=== PATIENT | female | born 1940 | race Caucasian/White ===

== ENCOUNTER 2018-09-29 00:23 | Emergency (ER) | payer MEDICARE, OTHER ==
[~2018-09-29] VITALS: Ht 157.5 cm; Wt 59.9 kg
--- NOTE | 2018-09-29 00:40 | NUR ---
TO BED 5 BIB PARAMEDICS C/O INTERMITTENT NONRADIATING CHEST PAIN SINCE 2299. PT AAOX4 NO ACUTE DISTRESS NOTED, RESP EVEN AND UNLABORED. PLACE PT ON CARDIAC MONITORING, CONTINUOUS POX, O2@2L/NC. ER MD AT BEDSIDE TO EVAL PT WITH ORDERS RECEIVED. WILL CARRY OUT ORDERS.
[2018-09-29 00:42] LABS: BASOPHILS # (AUTO) 0.1 /CMM (0.0-0.2); BASOPHILS % (AUTO) 2.4 % (0.0-2.0); EOSINOPHILS % (AUTO) 5.6 % (0.0-6.0); HEMATOCRIT 39 % (33-45); HEMOGLOBIN 13.4 g/dL (11.5-14.8); LYMPHOCYTES # (AUTO) 2.1 /CMM (0.8-4.8); MEAN CORPUSCULAR HGB CONC 34 g/dl (31.0-36.0); MEAN CORPUSCULAR VOLUME 89 fL (82-100); MONOCYTES # (AUTO) 0.5 /CMM (0.1-1.30); MONOCYTES % (AUTO) 8.6 % (2.0-12.0); NEUTROPHILS # (AUTO) 3.1 /CMM (1.8-8.9); NEUTROPHILS % (AUTO) 49.4 % (43.0-81.0); PLATELET COUNT (AUTO) 144 /CMM (150-450); WHITE BLOOD COUNT (AUTO) 6.2 K/uL (4.3-11.0)
[2018-09-29] MEDS ORDERED: MORPHINE SULFATE INJ 2 MG/ML DISP.SYRIN IV ONE (01:00)
--- NOTE | 2018-09-29 01:00 | NUR ---
now pt reports that her pain has been going on for a while and that shayy uses nitro patch but feels like it has stopped working but forgot to tell her doctor about it.
[2018-09-29] MEDS ORDERED: MORPHINE SULFATE INJ 2 MG/ML DISP.SYRIN ONE (01:01)
--- NOTE | 2018-09-29 01:06 | NUR ---
PT PAIN FREE AT THIS TIME. PT REFUSE PAIN MEDS AT THIS TIME. ER MADE AWARE.
[2018-09-29 01:19] LABS: ALANINE AMINOTRANSFERASE 17 U/L (12-78); ALBUMIN 3.3 g/dL (3.4-5.0); ALKALINE PHOSPHATASE 76 U/L (46-116); ASPARTATE AMINOTRANSFERASE 23 U/L (15-37); B-TYPE NATRIURETIC PEPTIDE 141 PG/ML (0-125); BILIRUBIN,DIRECT 0.1 mg/dL (0.0-0.2); BILIRUBIN,TOTAL 0.2 mg/dL (0.2-1.0); CARBON DIOXIDE 27 mmol/L (21-32); CHLORIDE 105 mmol/L (98-107); CREATININE 0.6 mg/dL (0.6-1.3); GLUCOSE 104 mg/dL (74-106); SODIUM SERUM 140 mmol/L (136-145); TOTAL PROTEIN, SERUM 6.6 g/dL (6.4-8.2); UREA NITROGEN, BLOOD 21 mg/dL (7-18)
--- NOTE | 2018-09-29 01:55 | NUR ---
IV removed. Catheter intact and site benign. Pressure and 4x4 applied to site. No bleeding noted. Patient discharged to home in stable condition. Written and verbal after care instructions given. Patient verbalizes understanding of instruction. ambulatory with a steady gait noted. pt aaox4 no acute distress noted, resp even and unlabored.
[2018-09-29 01:57] VITALS: BP 153/62
== END 2018-09-29 01:58 | disposition home or self-care (01) ==
LOC: ER 00:27
DX: I20.9 Angina pectoris, unspecified (principal); J45.909 Unspecified asthma, uncomplicated; Z98.890 Other specified postprocedural states; Z88.6 Allergy status to analgesic agent
CPT/HCPCS: 36415; 71045-TC; 80048-TC; 80076-TC; 83880; 84484-TC; 85025-TC; J2270

== ENCOUNTER 2019-06-07 01:01 | Inpatient (IN) | payer MEDICARE, OTHER ==
[~2019-06-07] VITALS: Ht 160 cm; Wt 56.7 kg
[~2019-06-07 01:01] MED LIST: FLUO20TA28 PO; FLUT1BLS IH; LORA10TA7 PO; MONT10TA22 PO; PRIM50TA PO
--- NOTE | 2019-06-07 01:15 | NUR ---
bib family for c/o abd pain x 3 hrs. -N/V. - diarrhea
[2019-06-07 01:39] LABS: BASOPHILS % (AUTO) 0.3 % (0.0-2.0); EOSINOPHILS % (AUTO) 4.5 % (0.0-6.0); HEMATOCRIT 41 % (33-45); HEMOGLOBIN 13.8 g/dL (11.5-14.8); LYMPHOCYTES # (AUTO) 1.7 /CMM (0.8-4.8); LYMPHOCYTES % (AUTO) 23.2 % (20.0-44.0); MEAN CORPUSCULAR HGB CONC 34 g/dl (31.0-36.0); MEAN CORPUSCULAR VOLUME 90 fL (82-100); MONOCYTES # (AUTO) 0.6 /CMM (0.1-1.30); MONOCYTES % (AUTO) 7.9 % (2.0-12.0); NEUTROPHILS # (AUTO) 4.7 /CMM (1.8-8.9); NEUTROPHILS % (AUTO) 64.1 % (43.0-81.0); PLATELET COUNT (AUTO) 134 /CMM (150-450); RED BLOOD CELL COUNT(AUTO) 4.55 MIL/uL (4.0-5.2); WHITE BLOOD COUNT (AUTO) 7.4 K/uL (4.3-11.0)
[2019-06-07 01:41] LABS: CALCIUM, SERUM 8.2 mg/dL (8.5-10.1); CARBON DIOXIDE 32 mmol/L (21-32); CHLORIDE 108 mmol/L (98-107); CREATININE 0.6 mg/dL (0.6-1.3); GLUCOSE 126 mg/dL (74-106); POTASSIUM 3.9 mmol/L (3.5-5.1); SODIUM SERUM 144 mmol/L (136-145); UREA NITROGEN, BLOOD 25 mg/dL (7-18)
[2019-06-07 01:48] LABS: ALANINE AMINOTRANSFERASE 64 U/L (12-78); ALBUMIN 3.2 g/dL (3.4-5.0); ALKALINE PHOSPHATASE 79 U/L (46-116); ASPARTATE AMINOTRANSFERASE 99 U/L (15-37); BILIRUBIN,DIRECT 0.2 mg/dL (0.0-0.2); BILIRUBIN,TOTAL 0.4 mg/dL (0.2-1.0); TOTAL PROTEIN, SERUM 6.2 g/dL (6.4-8.2)
[2019-06-07] MEDS ORDERED: CT SWABBABLE VALVE TRANS SET 1 EA INFUS.SET MC ONE (01:58)
[2019-06-07] MEDS ORDERED: IV NS 0.9% 250 ML IV ONE (01:58)
[2019-06-07] MEDS ORDERED: IOHEXOL-300 100 ML VIAL IV ONE (01:58)
--- NOTE | 2019-06-07 02:00 | NUR ---
pt was picked up for CT
[2019-06-07 02:01] LABS: LIPASE 2394 U/L (73-393)
--- NOTE | 2019-06-07 02:03 | NUR ---
obtained a verbal order from Dr. Greco for Morphine 2mg IV once for pain
[2019-06-07] MEDS ORDERED: MORPHINE SULFATE INJ 2 MG/ML DISP.SYRIN ONE (02:17)
[2019-06-07] MEDS ORDERED: MORPHINE SULFATE INJ 2 MG/ML DISP.SYRIN IV ONE (02:30)
[2019-06-07] MEDS ORDERED: IV NS 0.9% 1,000 ML IV STA (02:34)
[2019-06-07] MEDS ORDERED: IV NS 0.9% 1,000 ML IV PRN (03:00)
[2019-06-07] MEDS ORDERED: IV 1/2NS 1000 ML 1,000 ML IV PRN (03:10)
[2019-06-07] MEDS ORDERED: ONDANSETRON HCL/PF 4 MG/2 ML VIAL IVP PRN (03:30)
[2019-06-07] MEDS ORDERED: MORPHINE SULFATE INJ 2 MG/ML DISP.SYRIN IV PRN (03:30)
[2019-06-07] MEDS ORDERED: ZOLPIDEM TARTRATE 5 MG TABLET PO PRN (03:30)
[2019-06-07] MEDS ORDERED: Z GUARD REMEDY 2 OZ OINT TP PRN (03:30)
[2019-06-07] MEDS ORDERED: MAG HYDROX/AL HYDROX/SIMETH 30 ML UDC PO PRN (03:30)
[2019-06-07] MEDS ORDERED: MAGNESIUM HYDROXIDE 30 ML UDC PO PRN (03:30)
[2019-06-07] MEDS ORDERED: HYDROCODONE/APAP 5/325MG 1 EACH TABLET PO PRN (03:30)
--- NOTE | 2019-06-07 03:38 | NUR ---
pt was assisted to the bathroom. reported no pain at this time
--- NOTE | 2019-06-07 03:40 | NUR ---
pt does nor remember the list of her home meds. will provide the list in am
--- NOTE | 2019-06-07 03:53 | NUR ---
BED ASSIGNMENT 202
--- NOTE | 2019-06-07 04:12 | NUR ---
report given to Dolly on 2nd floor
--- NOTE | 2019-06-07 04:26 | NUR ---
pt was transferred to 202 in stable condition.
[2019-06-07 04:30] VITALS: BP 117/74
--- NOTE | 2019-06-07 04:30 | NUR ---
RN MS NOTES RECEIVED PATIENT FROM ER VIA WHEELCHAIR SAFELY TRANSFERRED TO BED, ADMITTING DX ACUTE PANCREATITIS, AWAKE ALERT AND ORIENTED X 4, RESPIRATIONS EVEN AND UNLABORED WITH EQUAL RISE AND FALL OF CHEST,DENIES ANY PAIN OR DISCOMFORT AT THIS TIME, IV SITE TO RIGHT AC #20G INTACT AND PATENT, IVF 1.2 NS AT 150 ML/HR RUNNING, BODY ASSESSMENT DONE, NO WOUNDS NOTED PATIENT ALSO DENIES WOUNDS, BELONGINGS LIST DONE, SAFETY PRECAUTIONS IN PLACE, ORIENTED TO STAFF AND CALL LIGHT AND KEPT WITHIN REACH, LOW BED AND LOCKED, PATIENT IS NPO STATUS, ALL NEEDS ATTENDED WILL CONTINUE TO MONITOR AND ATTEND TO NEEDS, OFFERED PAIN MEDICATION DENIED AT THIS TIME.
[2019-06-07 06:24] LABS: BASOPHILS % (AUTO) 0.2 % (0.0-2.0); EOSINOPHILS % (AUTO) 2.3 % (0.0-6.0); HEMATOCRIT 36 % (33-45); HEMOGLOBIN 12.6 g/dL (11.5-14.8); LYMPHOCYTES # (AUTO) 1.2 /CMM (0.8-4.8); MEAN CORPUSCULAR HGB CONC 35 g/dl (31.0-36.0); MEAN CORPUSCULAR VOLUME 89 fL (82-100); MONOCYTES # (AUTO) 0.3 /CMM (0.1-1.30); MONOCYTES % (AUTO) 6.6 % (2.0-12.0); NEUTROPHILS % (AUTO) 64.9 % (43.0-81.0); PLATELET COUNT (AUTO) 115 /CMM (150-450); WHITE BLOOD COUNT (AUTO) 4.6 K/uL (4.3-11.0)
--- NOTE | 2019-06-07 06:30 | NUR ---
RN MS CLOSING NOTES PATIENT IN BED,AWAKE ALERT AND ORIENTED X 4, RESPIRATIONS EVEN AND UNLABORED WITH EQUAL RISE AND FALL OF CHEST,DENIES ANY PAIN OR DISCOMFORT AT THIS TIME, IV SITE TO RIGHT AC #20G INTACT AND PATENT, IVF 1.2 NS AT 150 ML/HR RUNNING, SAFETY PRECAUTIONS IN PLACE,CALL LIGHT KEPT WITHIN REACH, LOW BED AND LOCKED, PATIENT IS NPO STATUS, ALL NEEDS ATTENDED WILL CONTINUE TO MONITOR AND ATTEND TO NEEDS, TOILETING OFFERED, REMAINS COMFORTABLE , NO CHANGE NOTED SINCE ADMISSION, PER PATIENT WILL ASK TO BRING HOME MEDICATION LIST.
[2019-06-07 07:10] LABS: ALANINE AMINOTRANSFERASE 240 U/L (12-78); ALBUMIN 2.8 g/dL (3.4-5.0); ALKALINE PHOSPHATASE 71 U/L (46-116); ASPARTATE AMINOTRANSFERASE 493 U/L (15-37); BILIRUBIN,TOTAL 0.4 mg/dL (0.2-1.0); CALCIUM, SERUM 7.5 mg/dL (8.5-10.1); CARBON DIOXIDE 26 mmol/L (21-32); CHLORIDE 106 mmol/L (98-107); CREATININE 0.5 mg/dL (0.6-1.3); GLUCOSE 155 mg/dL (74-106); LIPASE 1183 U/L (73-393); POTASSIUM 3.7 mmol/L (3.5-5.1); SODIUM SERUM 140 mmol/L (136-145); TOTAL PROTEIN, SERUM 5.4 g/dL (6.4-8.2); UREA NITROGEN, BLOOD 18 mg/dL (7-18)
--- NOTE | 2019-06-07 07:30 | NUR ---
RN MS NOTES PT IN BED, AWAKE, ALERT AND ORIENTED, NO COMPLAINT OF ABDOMINAL PAIN, NO NAUSEA POR VOMITING, NOT IN DISTRESS, IV FLUIDS INFUSING WELL, PLAN OF CARE DISCUSSED WITH PT, VERBALIZED UNDERSTANDING, ABLE TO AMBULATE TO THE BATHROOM WITH STEADY GAIT, CALL LIGHT WITHIN REACH, NEEDS ATTENDED.
[2019-06-07 08:00] VITALS: BP 133/73
[2019-06-07] MEDS ORDERED: MONT10TA22 PO (08:59)
[2019-06-07] MEDS ORDERED: DONE10TA44 PO (08:59)
[2019-06-07] MEDS ORDERED: MEMA28CA5 PO (08:59)
[2019-06-07] MEDS ORDERED: ESCI10TA PO (08:59)
[2019-06-07] MEDS ORDERED: ALBU18HF2 PO (08:59)
[2019-06-07] MEDS ORDERED: PRIM250T8 PO (08:59)
[2019-06-07] MEDS ORDERED: CARB1TAB21 PO (08:59)
--- NOTE | 2019-06-07 09:08 | NUR ---
RN MS NOTES PT SEEN AND EXAMINED BY DR ESTRELLA, PLAN OF CARE DISCUSSED WITH PT, VERBALIZED UNDERSTANDING, PER MD OK TO START ON CLEAR LIQUIDS FOR LUNCH.
[2019-06-07] MEDS ORDERED: ALBUTEROL FS 2.5 MG/0.5 ML VIAL.NEB NEB PRN (11:30)
--- NOTE | 2019-06-07 13:00 | NUR ---
RN MS NOTES PT IN BED, TOLERATING CURRENT DIET OF THIS TIME, NO COMPLAINT OF PAIN, NOT IN DISTRESS, NEEDS ATTENDED.
[2019-06-07] MEDS: PRIMIDONE 250 MG TABLET PO SCH ×2 (14:38→17:06)
[2019-06-07] MEDS: ACETAMINOPHEN 325 MG TABLET PO PRN (14:38)
[2019-06-07 16:00] VITALS: BP 150/80
[2019-06-07] MEDS: CARBIDOPA/LEVODOPA 25/100 MG 1 UDTAB PO SCH (17:06)
[2019-06-07] MEDS: MEMANTINE HCL 5 MG TABLET PO SCH (17:06)
--- NOTE | 2019-06-07 19:00 | NUR ---
RN MS NOTES PT IN BED, RESTING, NO COMPLAINT OF PAIN, NOT IN DISTRESS, RECEIVED BREATHING TREATMENT, VERBALIZED RELIEF, STATED THAT SHE IS TAKING NITROPATCH AND BREO INHALER AT HOME, DR. ESTRELLA INFORMED, MEDS ORDERED, ABLE TO AMBULATE ALONG THE HALLWAY WITH STEADY GAIT, ALL NEEDS ATTENDED.
--- NOTE | 2019-06-07 19:40 | NUR ---
RN OPENING NOTES RECEIVED REPORT FROM DAYSHIFT RN GILMA. FOUND Pt AWAKE, SITTING UP IN BED, VISITING AT BEDSIDE. Pt IS A/OX4, VERBAL, ABLE TO MAKE NEEDS KNOWN. NO S/S OF ACUTE DISTRESS OR SOB NOTED. NO C/O PAIN OR SEVERE DISCOMFORT AT THIS TIME. IV ACCESS ON RAC #20G. SAFETY MEASURES IN PLACE. BED LOW, LOCKED, HOB ELEVATED, SIDE RAILS UP, CALL LIGHT AND BED SIDE TABLE WITHIN REACH. WILL CONTINUE TO MONITOR Pt's CONDITION AND SAFETY THROUGHOUT THEE NIGHT.
[2019-06-07 20:30] VITALS: BP 121/55
[2019-06-07] MEDS ORDERED: MONTELUKAST SODIUM (10MG) 10 MG TABLET PO SCH (22:00)
[2019-06-07] MEDS ORDERED: DONEPEZIL 5 MG TABLET PO SCH (22:00)
--- NOTE | 2019-06-07 23:07 | NUR ---
Met with patient and spouse at bedside. Patient is alert and pleasant,states she lives locally with her spouse and daughter on the second floor apartment with elevator access. States her baseline is able to ambulate without assistive device and independent with adl's. She does not own any DME and no homehealth reported. She plan to return home once discharge. Addendum: 06/07/19 at 2307 by TAHIR PANG RN Amended: Links added.
--- NOTE | 2019-06-08 06:40 | NUR ---
RN CLOSING NOTES NO SIGNIFICANT CHANGES IN Pt's CONDITION. Pt REMAINED STABLE PER BASELINE. NO S/S OF ACUTE DISTRESS OR SOB NOTED DURING THE NIGHT. ALL NEEDS MET AND ATTENDED TO. ALL ORDERED MEDS GIVEN. Pt IS AWAKE, RESTING IN BED, WATCHING TV. SAFETY MEASURES IN PLACE. WILL ENDORSE TO DAYSHIFT RN FOR Pt's EUGENIO.
--- NOTE | 2019-06-08 07:15 | NUR ---
RN OPENING NOTES RECEIVED PATIENT IN BED RESTING. NOT IN NAY FORM OF DISTRESS. NO SOB. DENIED PAIN OR DISCOMFORT AT THIS TIME. IV ACCESS INTACT AND PATENT. NEEDS ATTENDED. KEPT PATIENT SAFE AND COMFORTABLE. BED IN LOW LOCKED POSITION. SIDERAILS UPX2, CALL LIGHT IN REACH. WILL CONT TO MONITOR ACCORDINGLY.
[2019-06-08 07:18] LABS: BASOPHILS % (AUTO) 0.4 % (0.0-2.0); EOSINOPHILS % (AUTO) 5.1 % (0.0-6.0); HEMATOCRIT 42 % (33-45); HEMOGLOBIN 14.3 g/dL (11.5-14.8); LYMPHOCYTES # (AUTO) 1.2 /CMM (0.8-4.8); LYMPHOCYTES % (AUTO) 27.2 % (20.0-44.0); MEAN CORPUSCULAR HGB CONC 34 g/dl (31.0-36.0); MEAN CORPUSCULAR VOLUME 89 fL (82-100); MONOCYTES # (AUTO) 0.4 /CMM (0.1-1.30); MONOCYTES % (AUTO) 8.8 % (2.0-12.0); NEUTROPHILS # (AUTO) 2.7 /CMM (1.8-8.9); NEUTROPHILS % (AUTO) 58.5 % (43.0-81.0); PLATELET COUNT (AUTO) 140 /CMM (150-450); WHITE BLOOD COUNT (AUTO) 4.6 K/uL (4.3-11.0)
[2019-06-08 08:08] LABS: ALBUMIN 3.3 g/dL (3.4-5.0); BILIRUBIN,TOTAL 0.6 mg/dL (0.2-1.0); CALCIUM, SERUM 8.1 mg/dL (8.5-10.1); CREATININE 0.6 mg/dL (0.6-1.3); MAGNESIUM 1.6 mg/dL (1.8-2.4); PHOSPHORUS 3.1 mg/dL (2.5-4.9); POTASSIUM 3.8 mmol/L (3.5-5.1); TOTAL PROTEIN, SERUM 6.5 g/dL (6.4-8.2)
[2019-06-08 08:20] VITALS: BP 135/79
[2019-06-08] MEDS: CARBIDOPA/LEVODOPA 25/100 MG 1 UDTAB PO SCH (08:39)
[2019-06-08] MEDS: MEMANTINE HCL 5 MG TABLET PO SCH (08:40)
[2019-06-08] MEDS: PRIMIDONE 250 MG TABLET PO SCH ×2 (08:40→14:21)
[2019-06-08] MEDS ORDERED: FLUTICASONE/VILANTEROL 1 EACH BLST.W.DEV IH SCH (09:00)
[2019-06-08] MEDS ORDERED: NITROGLYCERIN 0.4 MG/HR PATCH.TD24 TD PRN (09:00)
[2019-06-08] MEDS ORDERED: ESCITALOPRAM OXALATE (10 MG) 10 MG TABLET PO SCH (09:00)
[2019-06-08] MEDS ORDERED: Magnesium 1GM/D5W 100ML PREMIX 100 ML IV SCH (10:38)
[2019-06-08] MEDS: ACETAMINOPHEN 325 MG TABLET PO PRN (10:54)
[2019-06-08] MEDS ORDERED: MAGNESIUM OXIDE 400 MG TABLET PO ONE (12:30)
--- NOTE | 2019-06-08 13:00 | NUR ---
rn notes patient tolerated lunch well. no NV.
--- NOTE | 2019-06-08 16:10 | NUR ---
Discharged patient in stable condition picked up by [facility] Discharge instructions given to patient and , to follow up with pcp and GI doctor outpatient, and to continue home meds. Patient verbalized understanding. DC paperwork handed to patient and all belongings returned, all forms signed. IV access removed, no bleeding. Removed name band.
[2019-06-15] MEDS ORDERED: ONDA4TAB5 PO (11:45)
[2019-06-15] MEDS ORDERED: HYDR-4354 PO (11:45)
[2019-06-28] MEDS ORDERED: METH4TAB3 PO (08:56)
== END 2019-06-08 16:00 | disposition home or self-care (01) | DRG 439 ==
LOC: ER 01:03 → MEDSG2 03:56
PROVIDERS: ADMIT Nurse Practitioner Acute Care; ATTEND Nurse Practitioner Acute Care
DX: K85.90 Acute pancreatitis without necrosis or infection, unspecified (principal); E44.0 Moderate protein-calorie malnutrition; D68.59 Other primary thrombophilia; Z68.22 Body mass index [BMI] 22.0-22.9, adult; K44.9 Diaphragmatic hernia without obstruction or gangrene; K57.30 Diverticulosis of large intestine without perforation or abscess without bleeding; R74.0 Nonspecific elevation of levels of transaminase and lactic acid dehydrogenase [LDH]; I25.10 Atherosclerotic heart disease of native coronary artery without angina pectoris; Z98.61 Coronary angioplasty status; G20 Parkinson's disease; F32.9 Major depressive disorder, single episode, unspecified; G25.0 Essential tremor; F03.90 Unspecified dementia, unspecified severity, without behavioral disturbance, psychotic disturbance, mood disturbance, and anxiety; J45.909 Unspecified asthma, uncomplicated
CPT/HCPCS: 36415; 71045-TC; 76705-TC; 80048-TC; 80053-TC; 80076-TC; 83690-TC; 83735-TC; 84100-TC; 84478-TC; 84484-TC; 85025-TC; 87081-TC; G0378; J2270; J3475; J7030; J7050; Q9967

== ENCOUNTER 2019-06-13 10:10 | Outpatient (CLI) | payer MEDICARE, OTHER ==
[2019-06-13 10:10] VITALS: BP 109/70
[~2019-06-13 10:10] MED LIST changes: +ALBU18HF2 PO; +CARB1TAB21 PO; +DONE10TA44 PO; +ESCI10TA PO; +MEMA28CA5 PO; +PRIM250T8 PO
[2019-06-15] MEDS ORDERED: ONDA4TAB5 PO (11:45)
[2019-06-15] MEDS ORDERED: HYDR-4354 PO (11:45)
[2019-06-28] MEDS ORDERED: METH4TAB3 PO (08:56)
== END 2019-06-13 23:59 | disposition home or self-care (01) ==
LOC: MSC 10:10
PROVIDERS: ATTEND Internal Medicine
DX: R10.9 Unspecified abdominal pain (principal); G20 Parkinson's disease; I25.10 Atherosclerotic heart disease of native coronary artery without angina pectoris; Z98.61 Coronary angioplasty status; I10 Essential (primary) hypertension; F41.8 Other specified anxiety disorders

== ENCOUNTER 2019-06-13 10:44 | Inpatient (IN) | payer MEDICARE, OTHER ==
[~2019-06-13] VITALS: Ht 160 cm; Wt 54.0 kg
[~2019-06-13 10:44] MED LIST changes: -FLUO20TA28 PO; -FLUT1BLS IH; -LORA10TA7 PO; -PRIM50TA PO
--- NOTE | 2019-06-13 11:18 | NUR ---
TOOK OVER PT CARE. PT C/O ABDOMINAL PAIN SINCE LAST NIGHT. CHOLECYSTECTOMY DONE LAST WEEK. PLACED ON MONITOR AND PULSE OX.
[2019-06-13] MEDS ORDERED: ONDANSETRON HCL/PF 4 MG/2 ML VIAL ONE (11:28)
[2019-06-13] MEDS ORDERED: MORPHINE SULFATE INJ 4 MG/ML DISP.SYRIN ONE (11:28)
[2019-06-13] MEDS ORDERED: IV NS 0.9% 500 ML BAG IV ONE (11:30)
[2019-06-13] MEDS ORDERED: ONDANSETRON HCL/PF 4 MG/2 ML VIAL IVP ONE (11:30)
[2019-06-13] MEDS ORDERED: MORPHINE SULFATE INJ 2 MG/ML DISP.SYRIN IV ONE (11:30)
[2019-06-13 11:31] LABS: BASOPHILS % (AUTO) 0.7 % (0.0-2.0); EOSINOPHILS % (AUTO) 8.2 % (0.0-6.0); HEMATOCRIT 43 % (33-45); HEMOGLOBIN 14.5 g/dL (11.5-14.8); LYMPHOCYTES # (AUTO) 1.7 /CMM (0.8-4.8); LYMPHOCYTES % (AUTO) 36.9 % (20.0-44.0); MEAN CORPUSCULAR HGB CONC 34 g/dl (31.0-36.0); MEAN CORPUSCULAR VOLUME 91 fL (82-100); MONOCYTES # (AUTO) 0.4 /CMM (0.1-1.30); MONOCYTES % (AUTO) 9.7 % (2.0-12.0); NEUTROPHILS # (AUTO) 2.1 /CMM (1.8-8.9); NEUTROPHILS % (AUTO) 44.5 % (43.0-81.0); PLATELET COUNT (AUTO) 147 /CMM (150-450); RED BLOOD CELL COUNT(AUTO) 4.72 MIL/uL (4.0-5.2); WHITE BLOOD COUNT (AUTO) 4.6 K/uL (4.3-11.0)
[2019-06-13 11:32] LABS: CREATININE 0.6 mg/dL (0.6-1.3); POTASSIUM 4.5 mmol/L (3.5-5.1)
[2019-06-13 11:39] LABS: ALBUMIN 3.5 g/dL (3.4-5.0); BILIRUBIN,DIRECT 0.3 mg/dL (0.0-0.2); BILIRUBIN,TOTAL 0.7 mg/dL (0.2-1.0); TOTAL PROTEIN, SERUM 6.8 g/dL (6.4-8.2)
--- NOTE | 2019-06-13 11:55 | NUR ---
URINE SENT TO LAB
[2019-06-13 12:03] LABS: APPEARANCE,URINE Slightly Cloudy (CLEAR); BILIRUBIN,URINE Negative (NEGATIVE); BLOOD, URINE Trace-intact Ery/uL (NEGATIVE); COLOR,URINE Yellow (YELLOW); KETONES,URINE Negative (NEGATIVE); LEUKOCYTE ESTERASE ,URINE Negative (NEGATIVE); NITRITE, URINE Negative (NEGATIVE); PH,URINE 6.5 (5.0-8.0); PROTEIN,URINE Negative (NEGATIVE); UGLUCOSE Negative (NEGATIVE)
[2019-06-13 12:26] LABS: BACTERIA,URINE Few /HPF (None Seen); SQUAMOUS EPITHELIAL CELL,UR Few /HPF (None Seen); WBC,URINE 0-2 /HPF (0-3)
--- NOTE | 2019-06-13 13:01 | NUR ---
Patient is resting comfortably in bed. Easily aroused. VSS. Family at bedside
--- NOTE | 2019-06-13 13:06 | NUR ---
CALLED NURSING SUP FOR M/S BED.
--- NOTE | 2019-06-13 13:21 | NUR ---
NURSING SUP GAVE M/S BED 313-2.
--- NOTE | 2019-06-13 13:25 | NUR ---
TRIED CALLING FOR REPORT WAS TOLD NURSE IS ON BREAK. WILL CALL AGAIN IN TEN MINS
--- NOTE | 2019-06-13 13:43 | NUR ---
REPORT GIVEN TO MURIEL NASSAR FOR EUGENIO
--- NOTE | 2019-06-13 13:55 | NUR ---
PT TRANSFERED TO BED 313-2
[2019-06-13] MEDS ORDERED: ACETAMINOPHEN 325 MG TABLET PO PRN (14:00)
[2019-06-13] MEDS ORDERED: ONDANSETRON HCL/PF 4 MG/2 ML VIAL IVP PRN (14:00)
[2019-06-13] MEDS ORDERED: MORPHINE SULFATE INJ 4 MG/ML DISP.SYRIN IV PRN (14:00)
[2019-06-13] MEDS ORDERED: ALBUTEROL FS 2.5 MG/0.5 ML VIAL.NEB NEB PRN (14:30)
--- NOTE | 2019-06-13 15:00 | NUR ---
ms rn admitted a 78 year old female, came in from er w/cc of abdominal pain secondary to pancreatitis, awake,alert,oriented x4,not in any form of distress, accompanied by .will monitor patient.
[2019-06-13] MEDS: PANTOPRAZOLE 40 MG VIAL IV SCH (15:20)
[2019-06-13] MEDS: IV NS 0.9% 1,000 ML IV PRN (15:20)
--- NOTE | 2019-06-13 16:24 | NUR ---
ms psychiatric rn done, due meds given,went down for mrcp.
--- NOTE | 2019-06-13 17:56 | NUR ---
ms rn on bed, all needs attended.
[2019-06-13 20:00] VITALS: BP 117/64
--- NOTE | 2019-06-13 20:00 | NUR ---
MS/RN OPENING NOTES RECEIVED PATIENT AWAKE, ALERT X3,A BLE TO VERBALIZE NEEDS. REPORTED AND REQUESTED FOR ROOM CHANGE, AWAITING FOR ROOM , SITTING AND WAITING PATIENTLY ON IV FLUIDS, AT 100ML/HR, ON NPO STATUS DUE TO PANCREATITIS. WILL MONITOR. FAMILY INVOLVE.
[2019-06-13 20:01] VITALS: BP 117/64
[2019-06-14] MEDS: IV NS 0.9% 1,000 ML IV PRN ×2 (04:07→16:33)
--- NOTE | 2019-06-14 06:12 | NUR ---
MS/RN NOTES NO PAIN REPORTED BY PATIENT, WOULD LIKE TO KNOW PLAN AND STILL NPO STATUS , MRCP W/O CONTRAST DONE. AWAITING RESULT.F/U WITH MD HARDIN FOR PLAN OR PROCEDURE.
--- NOTE | 2019-06-14 06:35 | NUR ---
312/MS/RN PATIENT ABLE TO SLEEP DURING THE NIGHT, ALL NEEDS ATTENDED, RESPIRATIONS EVEN AND UNLABORED, SKIN WARM TO TOUCH, BED LOCKED, CALL LIGHTS WITHIN REACH. MONITORED FOR ANY CHANGES. WILL ENDORSE TO AM RN FOR EUGENIO.
[2019-06-14 07:02] LABS: BASOPHILS % (AUTO) 0.4 % (0.0-2.0); EOSINOPHILS % (AUTO) 9.7 % (0.0-6.0); HEMATOCRIT 43 % (33-45); HEMOGLOBIN 14.5 g/dL (11.5-14.8); LYMPHOCYTES # (AUTO) 1.4 /CMM (0.8-4.8); LYMPHOCYTES % (AUTO) 31.9 % (20.0-44.0); MEAN CORPUSCULAR HGB CONC 34 g/dl (31.0-36.0); MEAN CORPUSCULAR VOLUME 91 fL (82-100); MONOCYTES # (AUTO) 0.4 /CMM (0.1-1.30); MONOCYTES % (AUTO) 8.3 % (2.0-12.0); NEUTROPHILS # (AUTO) 2.2 /CMM (1.8-8.9); NEUTROPHILS % (AUTO) 49.7 % (43.0-81.0); PLATELET COUNT (AUTO) 134 /CMM (150-450); RED BLOOD CELL COUNT(AUTO) 4.69 MIL/uL (4.0-5.2); WHITE BLOOD COUNT (AUTO) 4.5 K/uL (4.3-11.0)
[2019-06-14 07:12] LABS: CHOLESTEROL 190 mg/dL (<200); HDL CHOLESTEROL 58 mg/dL (40-60); LDL 113 mg/dL (0-99); TRIGLYCERIDES 116 mg/dL (30-150)
[2019-06-14 07:16] LABS: CALCIUM, SERUM 7.3 mg/dL (8.5-10.1); CARBON DIOXIDE 29 mmol/L (21-32); CHLORIDE 110 mmol/L (98-107); CREATININE 0.5 mg/dL (0.6-1.3); GLUCOSE 89 mg/dL (74-106); LIPASE 339 U/L (73-393); MAGNESIUM 2.1 mg/dL (1.8-2.4); POTASSIUM 4.2 mmol/L (3.5-5.1); SODIUM SERUM 146 mmol/L (136-145); UREA NITROGEN, BLOOD 9 mg/dL (7-18)
[2019-06-14 08:00] VITALS: BP 134/70
--- NOTE | 2019-06-14 08:00 | NUR ---
MS/RN OPENING NOTES RECEIVED PATIENT AWAKE, ALERT X3,ABLE TO VERBALIZE NEEDS. ON IV FLUIDS NS, AT 100ML/HR INFUSING WELL, STARTED ON FULL LIQUID DIET. PT IS SO EAGER TO GO HOME.WILL MONITOR. PT'S IS VERY INVOLVED IN PT'S CARE.EXPLAINED TO PT THAT WE HAVE TO WAIT FOR GI FOR CLEARANCE.WILL MONITOR.CALL LIGHT PLACED WITHIN REACH.
[2019-06-14] MEDS: PANTOPRAZOLE 40 MG VIAL IV SCH (08:19)
[2019-06-14] MEDS: LORAZEPAM INJ 2 MG/ML VIAL IV PRN ×2 (08:25→16:40)
[2019-06-14] MEDS ORDERED: ALBUTEROL FS 2.5 MG/0.5 ML VIAL.NEB NEB PRN (15:00)
[2019-06-14] MEDS: ESCITALOPRAM OXALATE (10 MG) 10 MG TABLET PO SCH (15:21)
[2019-06-14 16:00] VITALS: BP 127/69
[2019-06-14] MEDS: MEMANTINE HCL 5 MG TABLET PO SCH (16:40)
[2019-06-14] MEDS: CARBIDOPA/LEVODOPA 25/100 MG 1 UDTAB PO SCH (16:40)
[2019-06-14] MEDS: PRIMIDONE 250 MG TABLET PO SCH (16:40)
--- NOTE | 2019-06-14 19:08 | NUR ---
MS/RN CLOSING NOTES RECEIVED PATIENT AWAKE, ALERT X3,ABLE TO VERBALIZE NEEDS. ON IV FLUIDS NS, AT 100ML/HR INFUSING WELL, STARTED ON FULL LIQUID DIET. PT IS SO EAGER TO GO HOME.WILL MONITOR. PT'S AND DAUGHTER IS VERY INVOLVED IN PT'S CARE.EXPLAINED TO PT THAT WE HAVE TO WAIT FOR GI FOR CLEARANCE.PT/FAMILY ARE IMPATIENTLY WAITING TO SEE THE GI DOCTOR.WILL MONITOR.CALL LIGHT PLACED WITHIN REACH.
--- NOTE | 2019-06-14 19:25 | NUR ---
MS/RN OPENING NOTES PT RECEIVED WITH EYES CLOSED, RESPONSIVE TO NAME. AT BEDSIDE. ON ROOM AIR, BREATHING EVEN AND UNLABORED. DENIES SOB AND PAIN, WITH SOME LLQ ABDOMINAL TENDERNESS. ABDOMEN IS SOFT, BOWEL SOUNDS PRESENT. IV TO RFA PATENT AND INTACT WITH IVF RUNNING ORDERED. BED IN LOW/LOCKED POSITION WITH CALL LIGHT IN REACH. HOB ELEVATED HIGH FOWLERS POSITION. SIDE RAILS UPX2. BED ALARM ON FOR SAFETY. WILL CONTINUE TO MONITOR
[2019-06-14 20:00] VITALS: BP 101/64
[2019-06-14] MEDS ORDERED: DONEPEZIL 5 MG TABLET PO SCH (22:00)
[2019-06-14] MEDS ORDERED: MONTELUKAST SODIUM (10MG) 10 MG TABLET PO SCH (22:00)
[2019-06-15 06:27] LABS: BASOPHILS % (AUTO) 0.4 % (0.0-2.0); HEMATOCRIT 39 % (33-45); HEMOGLOBIN 13.3 g/dL (11.5-14.8); LYMPHOCYTES # (AUTO) 1.8 /CMM (0.8-4.8); LYMPHOCYTES % (AUTO) 36.7 % (20.0-44.0); MEAN CORPUSCULAR HGB CONC 34 g/dl (31.0-36.0); MEAN CORPUSCULAR VOLUME 90 fL (82-100); MONOCYTES # (AUTO) 0.5 /CMM (0.1-1.30); MONOCYTES % (AUTO) 9.9 % (2.0-12.0); NEUTROPHILS # (AUTO) 2.2 /CMM (1.8-8.9); PLATELET COUNT (AUTO) 129 /CMM (150-450); RED BLOOD CELL COUNT(AUTO) 4.31 MIL/uL (4.0-5.2); WHITE BLOOD COUNT (AUTO) 4.9 K/uL (4.3-11.0)
[2019-06-15 06:34] LABS: ALANINE AMINOTRANSFERASE 260 U/L (12-78); ALBUMIN 2.8 g/dL (3.4-5.0); ALKALINE PHOSPHATASE 125 U/L (46-116); ASPARTATE AMINOTRANSFERASE 155 U/L (15-37); BILIRUBIN,DIRECT 0.1 mg/dL (0.0-0.2); BILIRUBIN,TOTAL 0.4 mg/dL (0.2-1.0); CALCIUM, SERUM 7.6 mg/dL (8.5-10.1); CARBON DIOXIDE 28 mmol/L (21-32); CHLORIDE 109 mmol/L (98-107); CREATININE 0.4 mg/dL (0.6-1.3); GLUCOSE 92 mg/dL (74-106); POTASSIUM 3.9 mmol/L (3.5-5.1); SODIUM SERUM 144 mmol/L (136-145); TOTAL PROTEIN, SERUM 5.8 g/dL (6.4-8.2); UREA NITROGEN, BLOOD 5 mg/dL (7-18)
--- NOTE | 2019-06-15 07:00 | NUR ---
MS/RN Opening Note Patient received in bed AO x 1, able to responds all stimuli. Pt does no c/o abdominal pain or any discomfort at this time, respiratory even and unlabored, skin is warm to touch, clean/dry. Call light within reach, will continue to monitor.
--- NOTE | 2019-06-15 07:37 | NUR ---
MS/RN CLOSING NOTES PT AWAKE, SITTING UP IN BED. AT BEDSIDE. ON ROOM AIR, BREATHING EVEN AND UNLABORED. DENIES PAIN AT THIS TIME. IV TO RFA PATENT AND INTACT WITH IVF RUNNING ORDERED. BED IN LOW/LOCKED POSITION WITH CALL LIGHT IN REACH. HOB ELEVATED, SIDE RAILS UPX2. FREQUENTLY USING BATHROOM. NO SIGNIFICANT CHANGES OVERNIGHT. ALL NEEDS MET. ENDORSED TO DAY SHIFT RN EUGENIO
[2019-06-15 08:00] VITALS: BP 127/66
[2019-06-15] MEDS: MEMANTINE HCL 5 MG TABLET PO SCH (08:40)
[2019-06-15] MEDS: ESCITALOPRAM OXALATE (10 MG) 10 MG TABLET PO SCH (08:40)
[2019-06-15] MEDS: PANTOPRAZOLE 40 MG VIAL IV SCH (08:40)
[2019-06-15] MEDS: PRIMIDONE 250 MG TABLET PO SCH ×2 (08:40→13:46)
[2019-06-15] MEDS: CARBIDOPA/LEVODOPA 25/100 MG 1 UDTAB PO SCH (08:41)
[2019-06-15] MEDS ORDERED: MEMANTINE HCL PO SCH (09:00)
[2019-06-15] MEDS: IV NS 0.9% 1,000 ML IV PRN (09:31)
[2019-06-15] MEDS ORDERED: ONDA4TAB5 PO (11:45)
[2019-06-15] MEDS ORDERED: HYDR-4354 PO (11:45)
--- NOTE | 2019-06-15 15:25 | NUR ---
Given discharge instruction include f/u MD at [facility] and fruit or nut picker prescription by teaching back tech, and patient verbally understanding. Denies pain or any discomfort, viral sign stable. Pt left facility accompanied by and staff, refused wheel chair to the private car.
== END 2019-06-15 15:24 | disposition home or self-care (01) | DRG 438 ==
LOC: ER 10:44 → MED 13:43
PROVIDERS: ADMIT Nurse Practitioner Acute Care; ATTEND Nurse Practitioner Acute Care
DX: K85.90 Acute pancreatitis without necrosis or infection, unspecified (principal); G93.41 Metabolic encephalopathy; N13.30 Unspecified hydronephrosis; F02.80 Dementia in other diseases classified elsewhere, unspecified severity, without behavioral disturbance, psychotic disturbance, mood disturbance, and anxiety; G20 Parkinson's disease; I25.10 Atherosclerotic heart disease of native coronary artery without angina pectoris; K57.30 Diverticulosis of large intestine without perforation or abscess without bleeding; K44.9 Diaphragmatic hernia without obstruction or gangrene; J45.909 Unspecified asthma, uncomplicated; Z90.49 Acquired absence of other specified parts of digestive tract; Z88.6 Allergy status to analgesic agent; Z88.8 Allergy status to other drugs, medicaments and biological substances; Z79.51 Long term (current) use of inhaled steroids; Z79.899 Other long term (current) drug therapy; G25.0 Essential tremor; I70.0 Atherosclerosis of aorta; R74.0 Nonspecific elevation of levels of transaminase and lactic acid dehydrogenase [LDH]; K83.8 Other specified diseases of biliary tract; K86.89 Other specified diseases of pancreas; M43.16 Spondylolisthesis, lumbar region
CPT/HCPCS: 36415; 71045-TC; 74181-TC; 80048-TC; 80061-TC; 80076-TC; 81000-TC; 83690-TC; 83735-TC; 84100-TC; 85025-TC; 87081-TC; C9113; G0378; J2060; J2270; J2405; J7030; J7040

== ENCOUNTER 2019-06-19 15:51 | Outpatient (CLI) | payer MEDICARE, OTHER ==
[~2019-06-19 15:51] MED LIST changes: +HYDR-4354 PO; +ONDA4TAB5 PO
== END 2019-06-19 23:59 | disposition home or self-care (01) ==
LOC: MSC 15:51
PROVIDERS: ATTEND Internal Medicine
DX: G20 Parkinson's disease (principal); F02.80 Dementia in other diseases classified elsewhere, unspecified severity, without behavioral disturbance, psychotic disturbance, mood disturbance, and anxiety; I25.119 Atherosclerotic heart disease of native coronary artery with unspecified angina pectoris; J45.909 Unspecified asthma, uncomplicated; Z90.49 Acquired absence of other specified parts of digestive tract; K44.9 Diaphragmatic hernia without obstruction or gangrene; K57.90 Diverticulosis of intestine, part unspecified, without perforation or abscess without bleeding

== ENCOUNTER 2019-06-27 00:25 | Inpatient (IN) | payer MEDICARE, OTHER ==
[~2019-06-27] VITALS: Ht 160 cm; Wt 56.2 kg
[~2019-06-27 00:25] MED LIST changes: +FLUO20TA28 PO; +FLUT1BLS IH; +LORA10TA7 PO; +PRIM50TA PO
--- NOTE | 2019-06-27 00:25 | NUR ---
PT BIB RA WITH A C/O SOB. PT REC'D A BREATHING TX IN THE FIELD. PT HAS SLIGHT WHEEZES BILATERALLY. PT WAS PLACED ON THE MONITOR AND CONTINUOUS PULSE OX. 96% ON RA.
[2019-06-27] MEDS ORDERED: IPRATROPIUM NEB FS 0.5 MG/2.5 ML AMPUL.NEB NEB ONE (01:00)
[2019-06-27] MEDS ORDERED: ALBUTEROL FS 2.5 MG/3 ML VIAL.NEB NEB ONE (01:00)
--- NOTE | 2019-06-27 01:04 | NUR ---
RT CALLED RE: BREATHING TX ORDER.
[2019-06-27 01:08] LABS: BASOPHILS % (AUTO) 0.5 % (0.0-2.0); EOSINOPHILS % (AUTO) 9.2 % (0.0-6.0); HEMATOCRIT 42 % (33-45); HEMOGLOBIN 14.4 g/dL (11.5-14.8); LYMPHOCYTES # (AUTO) 2.7 /CMM (0.8-4.8); LYMPHOCYTES % (AUTO) 46.3 % (20.0-44.0); MEAN CORPUSCULAR HGB CONC 34 g/dl (31.0-36.0); MEAN CORPUSCULAR VOLUME 90 fL (82-100); MONOCYTES # (AUTO) 0.5 /CMM (0.1-1.30); MONOCYTES % (AUTO) 7.8 % (2.0-12.0); NEUTROPHILS # (AUTO) 2.1 /CMM (1.8-8.9); NEUTROPHILS % (AUTO) 36.2 % (43.0-81.0); PLATELET COUNT (AUTO) 142 /CMM (150-450); RED BLOOD CELL COUNT(AUTO) 4.69 MIL/uL (4.0-5.2); WHITE BLOOD COUNT (AUTO) 5.9 K/uL (4.3-11.0)
--- NOTE | 2019-06-27 01:14 | NUR ---
RT IS AT THE BEDSIDE FOR BREATHING TX.
[2019-06-27 01:21] LABS: CALCIUM, SERUM 8.3 mg/dL (8.5-10.1); CARBON DIOXIDE 27 mmol/L (21-32); CHLORIDE 105 mmol/L (98-107); CREATININE 0.6 mg/dL (0.6-1.3); GLUCOSE 120 mg/dL (74-106); POTASSIUM 3.6 mmol/L (3.5-5.1); SODIUM SERUM 140 mmol/L (136-145); UREA NITROGEN, BLOOD 17 mg/dL (7-18)
[2019-06-27 01:33] LABS: ALANINE AMINOTRANSFERASE 146 U/L (12-78); ALBUMIN 3.5 g/dL (3.4-5.0); ALKALINE PHOSPHATASE 119 U/L (46-116); ASPARTATE AMINOTRANSFERASE 64 U/L (15-37); B-TYPE NATRIURETIC PEPTIDE 182 PG/ML (0-125); BILIRUBIN,DIRECT 0.2 mg/dL (0.0-0.2); BILIRUBIN,TOTAL 0.5 mg/dL (0.2-1.0); TOTAL PROTEIN, SERUM 6.9 g/dL (6.4-8.2)
--- NOTE | 2019-06-27 01:58 | NUR ---
PT AMBULATED TO THE BATHROOM WITH A STEADY GAIT AND MINIMAL ASSISTANCE.
[2019-06-27] MEDS ORDERED: DONE10TA44 PO (02:09)
[2019-06-27] MEDS ORDERED: OMEPRAZOLE DR PO (02:09)
[2019-06-27] MEDS ORDERED: ALBU18HF2 IH (02:09)
[2019-06-27] MEDS ORDERED: ESCI20TA PO (02:09)
[2019-06-27] MEDS ORDERED: CARB-93 PO (02:09)
[2019-06-27] MEDS ORDERED: MEMA28CA5 PO (02:09)
--- NOTE | 2019-06-27 02:12 | NUR ---
PT AMBULATED BACK TO ER BED #2 WITH A STEADY GAIT. PT WAS RECONNECTED TO THE MONITOR AND CONTINUOUS PULSE OX.
[2019-06-27] MEDS ORDERED: P-EP-92 PO (02:13)
[2019-06-27] MEDS ORDERED: MORPHINE SULFATE INJ 2 MG/ML DISP.SYRIN ONE (02:15)
--- NOTE | 2019-06-27 02:16 | NUR ---
PT IS C/O SHARP RT SIDED CHEST PAIN 12/13. NEW ORDERS GIVEN.
[2019-06-27] MEDS ORDERED: MORPHINE SULFATE INJ 10 MG/ML DISP.SYRIN IV ONE (02:30)
--- NOTE | 2019-06-27 02:40 | NUR ---
PT IS C/O INTERMITTENT RT SIDED CP. WILL CONTINUE TO MONITOR PT.
--- NOTE | 2019-06-27 02:53 | NUR ---
PT IS STILL C/O INTERMITTENT MIDSTERNAL CHEST PAIN.
--- NOTE | 2019-06-27 03:25 | NUR ---
CALLING REPORT TO TELE NURSE.
[2019-06-27] MEDS ORDERED: IV NS 0.9% 1,000 ML IV PRN (03:46)
[2019-06-27 04:00] VITALS: BP 90/74
[2019-06-27] MEDS ORDERED: ONDANSETRON HCL/PF 4 MG/2 ML VIAL IVP PRN (04:00)
[2019-06-27] MEDS ORDERED: BENZONATATE 100 MG CAPSULE PO PRN (04:00)
[2019-06-27] MEDS ORDERED: CEFTRIAXONE 1 G in IV D5W 50 ML IV SCH ×6 (04:00→09:00)
[2019-06-27] MEDS ORDERED: ACETAMINOPHEN 325 MG TABLET PO PRN (04:00)
[2019-06-27] MEDS ORDERED: Z GUARD REMEDY 2 OZ OINT TP PRN (04:00)
[2019-06-27 04:01] VITALS: BP 90/74
[2019-06-27] MEDS ORDERED: CEFTRIAXONE 1 G VIAL ONE (04:39)
--- NOTE | 2019-06-27 05:08 | NUR ---
ENDING NORES: alert and orientated X4. She states she "feels Better already". at her side. Room air sat97%. Rocephen ATB infused w/o problem. Instructed not to get OOB unassisted by the nurse for safety.Tele reading NSR HR93. BP 90/47 given Morphine in ER which was effective.
--- NOTE | 2019-06-27 07:10 | NUR ---
TRANSIT CLERK OPENING NOTES RECEIVED PATIENT IN BED, ALERT AND AWAKE X4. HOB ELEVATED. NO SOB. DENIES ANY C/O PAIN NOR DISCOMFORT AT THIS TIME. ON TELE MONITORING DR: 80. RIGHT HAND @ 20 INTACT AND PATENT INFUSING NS @ 75ML/HR ISABELA WELL. BED IN LOWEST POSITION, LOCKED. AMBULATORY WITH STEADY GAIT. CALL LIGHT WITHIN REACH.
[2019-06-27 08:00] VITALS: BP 98/56
[2019-06-27] MEDS: FLUTICASONE/VILANTEROL 1 EACH BLST.W.DEV IH SCH (08:51)
[2019-06-27] MEDS: PRIMIDONE 50 MG TABLET PO SCH ×3 (08:51→16:34)
[2019-06-27] MEDS: predniSONE 20 MG TABLET PO SCH (08:52)
[2019-06-27] MEDS: LORATADINE 10 MG TABLET PO SCH (08:52)
[2019-06-27] MEDS: CARBIDOPA/LEVODOPA 25/100 MG 1 UDTAB PO SCH ×3 (08:52→16:35)
[2019-06-27] MEDS: MEMANTINE HCL 5 MG TABLET PO SCH ×2 (08:52→16:35)
[2019-06-27] MEDS: ESCITALOPRAM OXALATE (10 MG) 10 MG TABLET PO SCH (08:52)
[2019-06-27] MEDS: MONTELUKAST SODIUM (10MG) 10 MG TABLET PO SCH (08:52)
[2019-06-27] MEDS: ENOXAPARIN SODIUM 40 MG/0.4 ML DISP.SYRIN SQ SCH (08:56)
[2019-06-27] MEDS ORDERED: ALBUTEROL FS 2.5 MG/0.5 ML VIAL.NEB NEB PRN (13:30)
[2019-06-27 16:00] VITALS: BP 119/65
--- NOTE | 2019-06-27 18:48 | NUR ---
MS RN CLOSING NOTES ALERT AND AWAKE X4. RESTING COMFORTABLY IN BED. HOB ELEVATED. NO S/S OF RESPIRATORY DISTRESS. DENIES ANY C/O PAIN NOR DISCOMFORT. LEFT FA # 22 INTACT AND PATENT INFUSING NS @ 75ML/HR ISABELA WELL. BED IN LOWEST POSITION, LOCKED. CALL LIGHT WITHIN REACH. IN NO APPARENT DISTRESS.
--- NOTE | 2019-06-27 19:30 | NUR ---
MS RN NOTES RECEIVED SITTING ON BED,A/O X4,BREATHING NORMAL,DENIES DISCOMFORTS,FAMILY MEMBERS AT BEDSIDE,IVF NS AT 75ML/HR RATE IN PROGRESS ON LEFT FA,SITE PATENT.CALL LIGHT IN REACH,NEEDS ANTICIPATED.
[2019-06-27 20:00] VITALS: BP 111/64
[2019-06-27] MEDS ORDERED: DONEPEZIL 5 MG TABLET PO SCH (22:00)
--- NOTE | 2019-06-27 22:48 | NUR ---
MS RN NOTES OFFERED TO BE CONNECTED TO IVF,PATIENT REFUSED.
[2019-06-28] MEDS ORDERED: CEFTRIAXONE 1 G in IV D5W 50 ML IV SCH (05:00)
--- NOTE | 2019-06-28 05:15 | NUR ---
MS RN NOTES DUE ANA MURILLO
--- NOTE | 2019-06-28 05:45 | NUR ---
MS RN NOTES IV ABX COMPLETED,OFFERED TO PUT BACK ON IVF BUT REFUSED.
--- NOTE | 2019-06-28 06:09 | NUR ---
MS RN NOTES FAIRLY RESTED,NO SIGNIFICANT CHANGE IN STATUS.NO EPISODE OF SOB,POSSIBLE D/C HOME TODAY,CALL LIGHT IN REACH,NEEDS ATTENDED.WILL ENDORSE TO DAY NURSE ANDREAS FOR EUGENIO.
--- NOTE | 2019-06-28 07:27 | NUR ---
MS RN OPENING NOTE PATIENT IN BED RESTING COMFORTABLY. PATIENT IN NO ACUTE DISTRESS. NO SOB NOTED. PATIENT BREATHING IS EVEN AND UNLABORED. PATIENT SAFETY PRECAUTIONS IN PLACE. PATIENT BED IS LOCKED AND IN LOWEST POSITION. CALL LIGHT WITHIN REACH. WILL CONTINUE TO MONITOR.
[2019-06-28 07:52] LABS: BASOPHILS % (AUTO) 0.4 % (0.0-2.0); EOSINOPHILS % (AUTO) 10.2 % (0.0-6.0); HEMATOCRIT 40 % (33-45); HEMOGLOBIN 13.4 g/dL (11.5-14.8); MEAN CORPUSCULAR HGB CONC 34 g/dl (31.0-36.0); MEAN CORPUSCULAR VOLUME 89 fL (82-100); MONOCYTES # (AUTO) 0.5 /CMM (0.1-1.30); MONOCYTES % (AUTO) 9.5 % (2.0-12.0); NEUTROPHILS # (AUTO) 2.3 /CMM (1.8-8.9); NEUTROPHILS % (AUTO) 42.9 % (43.0-81.0); PLATELET COUNT (AUTO) 150 /CMM (150-450); RED BLOOD CELL COUNT(AUTO) 4.43 MIL/uL (4.0-5.2); WHITE BLOOD COUNT (AUTO) 5.4 K/uL (4.3-11.0)
[2019-06-28 08:00] VITALS: BP 146/76
[2019-06-28 08:02] LABS: CALCIUM, SERUM 7.9 mg/dL (8.5-10.1); CARBON DIOXIDE 27 mmol/L (21-32); CHLORIDE 111 mmol/L (98-107); CREATININE 0.5 mg/dL (0.6-1.3); GLUCOSE 83 mg/dL (74-106); PHOSPHORUS 3.1 mg/dL (2.5-4.9); POTASSIUM 3.9 mmol/L (3.5-5.1); SODIUM SERUM 146 mmol/L (136-145); UREA NITROGEN, BLOOD 11 mg/dL (7-18)
[2019-06-28 08:11] LABS: CHOLESTEROL 181 mg/dL (<200); HDL CHOLESTEROL 62 mg/dL (40-60); LDL 108 mg/dL (0-99); TRIGLYCERIDES 74 mg/dL (30-150)
[2019-06-28] MEDS: MEMANTINE HCL 5 MG TABLET PO SCH (08:41)
[2019-06-28] MEDS: ESCITALOPRAM OXALATE (10 MG) 10 MG TABLET PO SCH (08:41)
[2019-06-28] MEDS: PRIMIDONE 50 MG TABLET PO SCH (08:41)
[2019-06-28] MEDS: CARBIDOPA/LEVODOPA 25/100 MG 1 UDTAB PO SCH (08:41)
[2019-06-28] MEDS: FLUTICASONE/VILANTEROL 1 EACH BLST.W.DEV IH SCH (08:41)
[2019-06-28] MEDS: predniSONE 20 MG TABLET PO SCH (08:42)
[2019-06-28] MEDS: LORATADINE 10 MG TABLET PO SCH (08:42)
[2019-06-28] MEDS: MONTELUKAST SODIUM (10MG) 10 MG TABLET PO SCH (08:42)
[2019-06-28] MEDS: ENOXAPARIN SODIUM 40 MG/0.4 ML DISP.SYRIN SQ SCH (08:43)
[2019-06-28] MEDS ORDERED: METH4TAB3 PO (08:56)
--- NOTE | 2019-06-28 10:45 | NUR ---
MS RN NOTE PATIENT REFUSING SKIN ASSESSMENT. EDUCATED RISKS VS BENEFITS. PATIENT CONTINUED TO REFUSE.
--- NOTE | 2019-06-28 11:15 | NUR ---
MS FIRST GRADE TEACHER NOTE PATIENT MEDICALLY STABLE TO GO HOME. PATIENT IN NO ACUTE DISTRESS. NO SOB NOTED. PATIENT BREATHING IS EVEN AND UNLABORED. PATIENT VITAL SIGNS WNL. DC INSTRUCTIONS PROVIDED. PATIENT VERBALIZED UNDERSTANDING. PATIENT BELONGINGS LIST SIGNED AND PATIENT HAS ALL BELONGINGS WITH HER. PATIENT ID BAND REMOVED. PATIENT IV REMOVED. PATIENT REFUSED SKIN ASSESSMENT. PATIENT KEPT CLEAN, DRY AND COMFORTABLE THROUGHOUT SHIFT. PATIENT NEEDS AND CONCERNS ADDRESSED. PATIENT GOING BACK HOME WITH BY CAR. MD AWARE OF DISCHARGE.
== END 2019-06-28 11:10 | disposition home or self-care (01) | DRG 202 ==
LOC: ER 00:35 → TELE 03:22 → MERGE 03:22 → MED 09:59
PROVIDERS: ADMIT Nurse Practitioner Acute Care; ATTEND Nurse Practitioner Acute Care
DX: J45.901 Unspecified asthma with (acute) exacerbation (principal); K86.1 Other chronic pancreatitis; R23.3 Spontaneous ecchymoses; G25.0 Essential tremor; I25.10 Atherosclerotic heart disease of native coronary artery without angina pectoris; Z98.61 Coronary angioplasty status; I70.90 Unspecified atherosclerosis; F02.80 Dementia in other diseases classified elsewhere, unspecified severity, without behavioral disturbance, psychotic disturbance, mood disturbance, and anxiety; G20 Parkinson's disease; K44.9 Diaphragmatic hernia without obstruction or gangrene; F03.90 Unspecified dementia, unspecified severity, without behavioral disturbance, psychotic disturbance, mood disturbance, and anxiety; Z87.891 Personal history of nicotine dependence
CPT/HCPCS: 36415; 71045-TC; 80048-TC; 80061-TC; 80076-TC; 83605-TC; 83735-TC; 83880; 84100-TC; 84484-TC; 85025-TC; 87040-TC; 87081-TC; G0378; J0696; J1650; J2270; J7030; J7060

== ENCOUNTER 2019-10-29 01:38 | Emergency (ER) | payer MEDICARE, OTHER ==
[~2019-10-29] VITALS: Ht 160 cm; Wt 72.6 kg
[~2019-10-29 01:38] MED LIST changes: +ALBU18HF2 IH; +CARB-93 PO; +ESCI20TA PO; +METH4TAB3 PO; +OMEPRAZOLE DR PO; +P-EP-92 PO
--- NOTE | 2019-10-29 01:53 | NUR ---
DR SHARIF AT BEDSIDE FOR EVAL
--- NOTE | 2019-10-29 01:54 | NUR ---
AT THE BED SIDE
[2019-10-29] MEDS ORDERED: DIPH1TAB PO (01:56)
[2019-10-29] MEDS ORDERED: MAG HYDROX/AL HYDROX/SIMETH 30 ML UDC ONE (02:07)
[2019-10-29] MEDS ORDERED: ONDANSETRON HCL/PF 4 MG/2 ML VIAL ONE (02:08)
[2019-10-29] MEDS ORDERED: FAMOTIDINE/PF INJ 20 MG/2 ML VIAL IV ONE ×2 (02:08→02:30)
[2019-10-29 02:30] LABS: BASOPHILS % (AUTO) 0.3 % (0.0-2.0); EOSINOPHILS % (AUTO) 1.9 % (0.0-6.0); HEMATOCRIT 41 % (33-45); HEMOGLOBIN 13.8 g/dL (11.5-14.8); LYMPHOCYTES % (AUTO) 42.8 % (20.0-44.0); MEAN CORPUSCULAR HGB CONC 34 g/dl (31.0-36.0); MEAN CORPUSCULAR VOLUME 90 fL (82-100); MONOCYTES # (AUTO) 0.4 /CMM (0.1-1.30); MONOCYTES % (AUTO) 8.9 % (2.0-12.0); NEUTROPHILS # (AUTO) 2.2 /CMM (1.8-8.9); NEUTROPHILS % (AUTO) 46.1 % (43.0-81.0); PLATELET COUNT (AUTO) 119 /CMM (150-450); RED BLOOD CELL COUNT(AUTO) 4.56 MIL/uL (4.0-5.2); WHITE BLOOD COUNT (AUTO) 4.7 K/uL (4.3-11.0)
[2019-10-29] MEDS ORDERED: IV NS 0.9% 1,000 ML BAG IV ONE (02:30)
[2019-10-29] MEDS ORDERED: MAG HYDROX/AL HYDROX/SIMETH 30 ML UDC PO ONE (02:30)
[2019-10-29] MEDS ORDERED: ONDANSETRON HCL/PF 4 MG/2 ML VIAL IVP ONE (02:30)
[2019-10-29 02:36] LABS: CALCIUM, SERUM 7.9 mg/dL (8.5-10.1); CREATININE 0.8 mg/dL (0.6-1.3); POTASSIUM 3.6 mmol/L (3.5-5.1)
--- NOTE | 2019-10-29 02:39 | NUR ---
ATTEMPTED TO PROVIDE URINE SAMPLE,. UNSUCCESSFUL
[2019-10-29 02:43] LABS: BILIRUBIN,DIRECT 0.2 mg/dL (0.0-0.2); BILIRUBIN,TOTAL 0.4 mg/dL (0.2-1.0); TOTAL PROTEIN, SERUM 6.2 g/dL (6.4-8.2)
[2019-10-29] MEDS ORDERED: IV NS 0.9% 250 ML IV ONE (03:24)
[2019-10-29] MEDS ORDERED: IOHEXOL-300 100 ML VIAL IV ONE (03:24)
--- NOTE | 2019-10-29 03:49 | NUR ---
Gifty nolen in [facility] - 10/29/19 at 0350 by KENDALL [id number]
[2019-10-29 04:08] LABS: APPEARANCE,URINE Clear (CLEAR); BILIRUBIN,URINE Negative (NEGATIVE); BLOOD, URINE Negative Ery/uL (NEGATIVE); COLOR,URINE Yellow (YELLOW); KETONES,URINE Negative (NEGATIVE); LEUKOCYTE ESTERASE ,URINE Negative (NEGATIVE); NITRITE, URINE Negative (NEGATIVE); PH,URINE 6.5 (5.0-8.0); PROTEIN,URINE Negative (NEGATIVE); UGLUCOSE Negative (NEGATIVE); UROBILINOGEN,URINE 0.2 EU/dL (0.2)
--- NOTE | 2019-10-29 05:00 | NUR ---
PT IS MEDICALLY CLEAR FOR D/C. CALLED FAMILY TO PICK HER UP. THEY WILL BE HERE IN HALF AN HOUR.
--- NOTE | 2019-10-29 05:48 | NUR ---
IV removed. Catheter intact and site benign. Pressure and 4x4 applied to site. No bleeding noted.Patient discharged to home in stable condition. Rx anmdd Written and verbal after care instructions given. Patient verbalizes understanding of instruction. Pt was picked up by her dtr.
[2019-10-29 05:50] VITALS: BP 117/82
== END 2019-10-29 05:50 | disposition home or self-care (01) ==
LOC: ER 01:39
DX: R10.13 Epigastric pain (principal); R11.0 Nausea; G20 Parkinson's disease; J45.909 Unspecified asthma, uncomplicated; Z90.49 Acquired absence of other specified parts of digestive tract; Z98.890 Other specified postprocedural states; Z88.6 Allergy status to analgesic agent; Z88.5 Allergy status to narcotic agent; Z79.899 Other long term (current) drug therapy
CPT/HCPCS: 36415; 74177; 80048; 80076; 81001; 83690; 84484; 85025; 93005; 96374; 96375; 99285; J2405; J3490; J7030; J7050; Q9967; 81000-TC

== ENCOUNTER 2020-02-02 07:19 | Emergency (ER) | payer MEDICARE, OTHER ==
[~2020-02-02 07:19] MED LIST changes: +DIPH1TAB PO
--- NOTE | 2020-02-02 07:47 | NUR ---
CALLED IN ED WAITING ROOM. NO REPLY.
--- NOTE | 2020-02-02 08:02 | NUR ---
Multiple Called NO response Keon spoke to Managing Attorney Araceli "I saw them leave"
== END 2020-02-02 08:04 | disposition home or self-care (01) ==
LOC: ER 07:22
DX: Z53.21 Procedure and treatment not carried out due to patient leaving prior to being seen by health care provider (principal)